=== PATIENT | male | born 1945 | race Caucasian/White ===

== ENCOUNTER 2017-01-15 22:03 | Inpatient (IN) | payer MEDICARE ==
[~2017-01-15] VITALS: Ht 170.2 cm; Wt 104.0 kg
[~2017-01-15 22:03] MED LIST: ASPIR-LOW81 MG PO; ASPIRIN 32325 MG/TAB PO; ASPIRIN 81M81 MG/TA2 PO; AVALIDE PO; CELEXA 20MG20 MG/TAB PO; CLOPIDOGREL; COREG; COREG 25MG25 MG/TAB PO; COUMADIN 1MG1 MG/TAB PO; COZAAR100 MG PO; DARVOCET-N-101 UDTAB PO; FLEXERIL 1010 MG/TAB PO; FUROSEMIDE; GLUCOPHAGE1000 MG PO; GLUCOTROL XL10 MG PO; GLUCOTROL10 M1 PO; HCTZ 25MG TAB25 MG PO; KLOR-CON 1010 MEQ PO; LANOXIN 0.120.125 MG PO; LANTUS100 U/ML SC; LASIX 20MG TABL20 MG PO; MULTIVITAMIN1 CTB PO; MVI; NITROSTAT0.4 MG/TAB SL; NORCO 325 MG-51 TAB PO; NOVOLOG 100U100 U/M1 SQ; ONGLYZA5 MG PO; PLAVIX 75MG TAB75 MG PO; PRAVACHOL 40MG40 MG PO; VICODIN 5/5001 UDTAB PO
[2017-01-15] MEDS ORDERED: ELIQUIS 5MG PO (22:24)
[2017-01-15] MEDS ORDERED: DEMADEX100 MG PO (22:25)
[2017-01-15 22:27] LABS: BASO # 0.1 (0.0-0.2); BASO % 0.4 % (0.0-2.0); EOS # 0.3 (0.0-0.7); EOS % 2.4 % (0-4.0); GRAN # 9.2 (1.4-6.5); GRAN % 74.7 % (42.2-75.2); HEMATOCRIT 43.9 % (42.0-52.0); HEMOGLOBIN 14.2 g/dl (13.5-18.0); LYMPH # 1.7 (1.2-3.4); LYMPH % 13.7 % (20.0-51.0); MEAN CELL VOLUME 91 fl (80.0-100.0); MEAN CORPUSCULAR HEMOGLOBIN 30 pg (27.0-31.0); MEAN CORPUSCULAR HGB CONC 32 g/dl (33.0-37.0); MEAN PLATELET VOLUME 10.4 fl (7.4-10.4); MONO % 8.4 % (1.7-9.3); PLATELET COUNT 230 K/mm3 (130-400); RED BLOOD COUNT 4.81 M/mm3 (4.20-5.60); REDCELL DISTRIBUTION WIDTH-CV 13.5 % (11.5-14.5); WHITE BLOOD COUNT 12.3 K/mm3 (4.8-10.8)
[2017-01-15 23:15] LABS: PROTHROMBIN TIME 11.6 SECONDS (9.7-12.8)
[2017-01-15 23:18] LABS: PARTIAL THROMBOPLASTIN TIME 33.3 SECONDS (26.0-37.0)
[2017-01-15 23:41] LABS: ADJUSTED CALCIUM 9.2 mg/dL (8.4-10.2); ALBUMIN 3.9 gm/dL (3.5-5.0); BILIRUBIN,TOTAL 0.7 mg/dL (0.0-1.0); CALCIUM 9.1 mg/dL (8.4-10.2); CREATININE, serum 0.87 mg/dL (0.66-1.25); POTASSIUM 3.8 mmol/L (3.4-5.0); TOTAL PROTEIN 6.9 gm/dL (6.4-8.2); TROPONIN-I 0.023 ng/mL (0.000-0.034)
[2017-01-16] VITALS (1109 sets, daily range): BP systolic 109–139; BP diastolic 61–92; PULSE 60–170; TEMP 97–98.7; O2SAT 83–100
[2017-01-16] MEDS ORDERED: ASPIRIN 81M81 MG/TA2 PO (01:12)
[2017-01-16] MEDS ORDERED: TRESIBA FL100 UNIT/1 SQ (01:19)
[2017-01-16 09:28] LABS: MAGNESIUM 1.9 mg/dL (1.6-2.3)
[2017-01-16 14:06] LABS: THYROID STIMULATING HORMONE 7.04 uIU/mL (0.465-4.680)
[2017-01-17] VITALS (907 sets, daily range): BP systolic 123–152; BP diastolic 59–79; PULSE 59–71; TEMP 97.3–98.7; O2SAT 80–100
[2017-01-17 06:09] LABS: BASO % 0.3 % (0.0-2.0); EOS # 0.3 (0.0-0.7); EOS % 2.9 % (0-4.0); GRAN # 8.7 (1.4-6.5); GRAN % 75.6 % (42.2-75.2); HEMATOCRIT 41.1 % (42.0-52.0); HEMOGLOBIN 13.5 g/dl (13.5-18.0); LYMPH # 1.4 (1.2-3.4); LYMPH % 11.9 % (20.0-51.0); MEAN CELL VOLUME 91 fl (80.0-100.0); MEAN CORPUSCULAR HEMOGLOBIN 30 pg (27.0-31.0); MEAN CORPUSCULAR HGB CONC 33 g/dl (33.0-37.0); MEAN PLATELET VOLUME 9.8 fl (7.4-10.4); MONO % 8.8 % (1.7-9.3); PLATELET COUNT 210 K/mm3 (130-400); RED BLOOD COUNT 4.54 M/mm3 (4.20-5.60); REDCELL DISTRIBUTION WIDTH-CV 13.6 % (11.5-14.5); WHITE BLOOD COUNT 11.5 K/mm3 (4.8-10.8)
[2017-01-17 06:37] LABS: CREATININE, serum 0.86 mg/dL (0.66-1.25); MAGNESIUM 1.7 mg/dL (1.6-2.3); POTASSIUM 3.5 mmol/L (3.4-5.0)
[2017-01-18] VITALS (815 sets, daily range): BP systolic 86–131; BP diastolic 47–81; PULSE 63–85; TEMP 97.4–98.6; O2SAT 76–99
[2017-01-18 05:43] LABS: HEMATOCRIT 43.9 % (42.0-52.0); HEMOGLOBIN 14.5 g/dl (13.5-18.0); MEAN CELL VOLUME 90 fl (80.0-100.0); MEAN CORPUSCULAR HEMOGLOBIN 30 pg (27.0-31.0); MEAN CORPUSCULAR HGB CONC 33 g/dl (33.0-37.0); PLATELET COUNT 223 K/mm3 (130-400); RED BLOOD COUNT 4.88 M/mm3 (4.20-5.60); REDCELL DISTRIBUTION WIDTH-CV 13.5 % (11.5-14.5); WHITE BLOOD COUNT 11.2 K/mm3 (4.8-10.8)
[2017-01-18 05:47] LABS: INR 1.2 (0.8-3.0); PROTHROMBIN TIME 13.2 SECONDS (9.7-12.8)
[2017-01-18 05:50] LABS: PARTIAL THROMBOPLASTIN TIME 20.9 SECONDS (26.0-37.0)
[2017-01-18 05:57] LABS: CALCIUM 9.2 mg/dL (8.4-10.2); CREATININE, serum 0.93 mg/dL (0.66-1.25); POTASSIUM 3.2 mmol/L (3.4-5.0)
[2017-01-18 14:40] LABS: MAGNESIUM 1.8 mg/dL (1.6-2.3)
[2017-01-19] VITALS (320 sets, daily range): BP systolic 95–122; BP diastolic 47–67; PULSE 64–104; TEMP 97.9–98.6; O2SAT 73–97
[2017-01-19 06:39] LABS: ADJUSTED CALCIUM 9.3 mg/dL (8.4-10.2); ALBUMIN 3.8 gm/dL (3.5-5.0); BILIRUBIN,TOTAL 0.9 mg/dL (0.0-1.0); CALCIUM 9.1 mg/dL (8.4-10.2); CREATININE, serum 1.07 mg/dL (0.66-1.25); MAGNESIUM 1.9 mg/dL (1.6-2.3); POTASSIUM 3.7 mmol/L (3.4-5.0); TOTAL PROTEIN 6.9 gm/dL (6.4-8.2)
[2017-01-20 01:14] VITALS: BP 100/52; PULSE 78; TEMP 98.1
[2017-01-20 04:10] VITALS: BP 118/54; PULSE 68; TEMP 98
[2017-01-20 04:59] VITALS: BP 118/54; PULSE 68; TEMP 98
[2017-01-20 08:54] VITALS: BP 127/61; PULSE 71; TEMP 98.5
[2017-01-20] MEDS ORDERED: COREG 25MG25 MG/TAB PO (11:26)
[2017-01-20] MEDS ORDERED: CARDIZEM CD 24240 MG PO (11:26)
[2017-01-20] MEDS ORDERED: CORDARONE200 MG/TAB PO (11:26)
[2017-01-20] MEDS ORDERED: KLOR-CON M2020 MEQ PO (11:26)
[2017-01-20] MEDS ORDERED: NITRO-DUR0.2 MG/PAT TD (11:26)
== END 2017-01-20 14:25 | disposition home or self-care (01) | DRG 281 ==
LOC: COL.ER 22:03 → ICU 23:13 → COL.ER 23:13 → IMCU 01-17 19:05 → ICU 01-17 19:05 → IMCU 01-19 10:58 → ICU 01-19 10:58 → MEDICAL 01-19 10:58
PROVIDERS: Family Medicine; Internal Medicine; Internal Medicine Cardiovascular Disease
PROC: B2111ZZ Fluoroscopy of Multiple Coronary Arteries using Low Osmolar Contrast (ICD-10-PCS; principal; 2017-01-18)
PROC: B2151ZZ Fluoroscopy of Left Heart using Low Osmolar Contrast (ICD-10-PCS; 2017-01-18)
DX: I48.2 Chronic atrial fibrillation (principal); I21.4 Non-ST elevation (NSTEMI) myocardial infarction; I50.22 Chronic systolic (congestive) heart failure; I47.2 Ventricular tachycardia; I25.5 Ischemic cardiomyopathy; I11.0 Hypertensive heart disease with heart failure; E11.65 Type 2 diabetes mellitus with hyperglycemia; I25.10 Atherosclerotic heart disease of native coronary artery without angina pectoris; Z95.810 Presence of automatic (implantable) cardiac defibrillator; Z95.5 Presence of coronary angioplasty implant and graft
CPT/HCPCS: 99223-AI; 99232-AI; 99239; C1760; J0282; J1815; J2250; J2270; J3010; J7050; J7060; Q9967

== ENCOUNTER 2017-12-03 16:53 | Inpatient (IN) | payer MEDICARE ==
[~2017-12-03] VITALS: Ht 170.2 cm; Wt 104.0 kg
[~2017-12-03 16:53] MED LIST changes: +CARDIZEM CD 24240 MG PO; +CORDARONE200 MG/TAB PO; +DEMADEX100 MG PO; +ELIQUIS 5MG PO; +KLOR-CON M2020 MEQ PO; +NITRO-DUR0.2 MG/PAT TD; +TRESIBA FL100 UNIT/1 SQ
[2017-12-03 17:15] LABS: MEAN CELL VOLUME 85 fl (80.0-100.0); MEAN CORPUSCULAR HGB CONC 29 g/dl (33.0-37.0); MEAN PLATELET VOLUME 9.3 fl (7.4-10.4); PLATELET COUNT 288 K/mm3 (130-400); RED BLOOD COUNT 2.89 M/mm3 (4.20-5.60)
[2017-12-03 17:16] LABS: HEMATOCRIT 24.5 % (42.0-52.0); HEMOGLOBIN 7.1 g/dl (13.5-18.0); MEAN CORPUSCULAR HEMOGLOBIN 25 pg (27.0-31.0)
[2017-12-03 17:26] LABS: ALANINE AMINOTRANSFERASE 140 U/L (21-72); ALBUMIN 3.8 gm/dL (3.5-5.0); ALKALINE PHOSPHATASE 71 U/L (50-136); ANION GAP 10 mmol/L (7-16); AST,SGOT 77 U/L (15-37); BILIRUBIN,TOTAL 0.4 mg/dL (0.0-1.0); BLOOD UREA NITROGEN 19 mg/dL (9-20); CALCIUM 8.9 mg/dL (8.4-10.2); CARBON DIOXIDE 29 mmol/L (22-30); CHLORIDE 99 mmol/L (98-107); CREATINE KINASE 32 U/L (55-170); CREATININE, serum 1.25 mg/dL (0.66-1.25); GLUCOSE 145 mg/dL (74-106); POTASSIUM 3.9 mmol/L (3.4-5.0); SODIUM 138 mmol/L (137-145); TOTAL PROTEIN 6.4 gm/dL (6.4-8.2)
[2017-12-03 17:31] LABS: BAND 1 % (0-10); EOSINOPHIL 1 % (0-4); LYMPHOCYTE 3 % (20.0-51.0); MICROCYTOSIS 1+; NEUTROPHILS 91 % (42.0-75.2); PLATELET ESTIMATE NORMAL (NORMAL)
[2017-12-03 17:32] LABS: ANISOCYTOSIS 2+; HYPOCHROMIA 2+
[2017-12-03 17:39] LABS: TROPONIN-I < 0.012 ng/mL (0.000-0.034)
[2017-12-03] MEDS ORDERED: TRESIBA FL100 UNIT/1 SQ (17:51)
[2017-12-03 19:42] VITALS: BP 154/61; PULSE 67; TEMP 97.2
[2017-12-03 22:00] VITALS: BP 135/59; PULSE 78; TEMP 98.3
[2017-12-03 22:15] VITALS: BP 141/54; PULSE 69; TEMP 98.4
[2017-12-03 22:30] VITALS: BP 144/55; PULSE 64; TEMP 98.7
[2017-12-03 23:00] VITALS: BP 126/47; PULSE 64; TEMP 98.7
[2017-12-04] VITALS (9 sets, daily range): BP systolic 103–154; BP diastolic 45–82; PULSE 63–80; TEMP 98.2–98.7
[2017-12-04 01:53] LABS: HEMATOCRIT 23.2 % (42.0-52.0); HEMOGLOBIN 7.2 g/dl (13.5-18.0)
[2017-12-04 06:56] LABS: BASO % 0.2 % (0.0-2.0); EOS # 0.2 (0.0-0.7); EOS % 2.1 % (0-4.0); GRAN # 6.8 (1.4-6.5); GRAN % 79.2 % (42.2-75.2); LYMPH # 0.6 (1.2-3.4); LYMPH % 7.4 % (20.0-51.0); MEAN CELL VOLUME 83 fl (80.0-100.0); MEAN CORPUSCULAR HGB CONC 31 g/dl (33.0-37.0); MEAN PLATELET VOLUME 9.5 fl (7.4-10.4); MONO # 0.9 (0.1-0.6); MONO % 10.5 % (1.7-9.3); PLATELET COUNT 244 K/mm3 (130-400); RED BLOOD COUNT 2.79 M/mm3 (4.20-5.60); REDCELL DISTRIBUTION WIDTH-CV 16.6 % (11.5-14.5)
[2017-12-04 07:06] LABS: ALBUMIN 3.2 gm/dL (3.5-5.0); BILIRUBIN,TOTAL 0.4 mg/dL (0.0-1.0); CALCIUM 8.7 mg/dL (8.4-10.2); CREATININE, serum 1.21 mg/dL (0.66-1.25); POTASSIUM 3.5 mmol/L (3.4-5.0); TOTAL PROTEIN 5.6 gm/dL (6.4-8.2)
[2017-12-04 07:09] LABS: HEMATOCRIT 23.2 % (42.0-52.0); HEMOGLOBIN 7.1 g/dl (13.5-18.0); MEAN CORPUSCULAR HEMOGLOBIN 25 pg (27.0-31.0)
[2017-12-04 09:34] LABS: HEMATOCRIT 24.8 % (42.0-52.0); HEMOGLOBIN 7.4 g/dl (13.5-18.0)
[2017-12-04 17:24] LABS: BASO % 0.2 % (0.0-2.0); EOS # 0.2 (0.0-0.7); EOS % 2.1 % (0-4.0); GRAN # 7.2 (1.4-6.5); GRAN % 79.2 % (42.2-75.2); LYMPH # 0.7 (1.2-3.4); MEAN CELL VOLUME 82 fl (80.0-100.0); MEAN CORPUSCULAR HGB CONC 30 g/dl (33.0-37.0); MEAN PLATELET VOLUME 9.8 fl (7.4-10.4); MONO # 0.9 (0.1-0.6); MONO % 10.2 % (1.7-9.3); PLATELET COUNT 250 K/mm3 (130-400); REDCELL DISTRIBUTION WIDTH-CV 16.7 % (11.5-14.5)
[2017-12-04 17:33] LABS: HEMATOCRIT 24.7 % (42.0-52.0); HEMOGLOBIN 7.5 g/dl (13.5-18.0); MEAN CORPUSCULAR HEMOGLOBIN 25 pg (27.0-31.0)
[2017-12-05 03:48] VITALS: BP 137/52; PULSE 66; TEMP 98.3
[2017-12-05 06:57] LABS: BASO % 0.4 % (0.0-2.0); EOS # 0.2 (0.0-0.7); EOS % 2.7 % (0-4.0); GRAN # 5.8 (1.4-6.5); GRAN % 73.8 % (42.2-75.2); LYMPH # 0.8 (1.2-3.4); LYMPH % 10.7 % (20.0-51.0); MEAN CELL VOLUME 84 fl (80.0-100.0); MEAN CORPUSCULAR HGB CONC 30 g/dl (33.0-37.0); MEAN PLATELET VOLUME 9.9 fl (7.4-10.4); MONO # 0.9 (0.1-0.6); PLATELET COUNT 251 K/mm3 (130-400); RED BLOOD COUNT 2.81 M/mm3 (4.20-5.60); REDCELL DISTRIBUTION WIDTH-CV 16.9 % (11.5-14.5)
[2017-12-05 07:00] LABS: CALCIUM 8.3 mg/dL (8.4-10.2); CREATININE, serum 0.98 mg/dL (0.66-1.25); POTASSIUM 3.4 mmol/L (3.4-5.0)
[2017-12-05 07:13] LABS: HEMATOCRIT 23.6 % (42.0-52.0); MEAN CORPUSCULAR HEMOGLOBIN 25 pg (27.0-31.0)
[2017-12-05 07:27] VITALS: BP 116/49; PULSE 76; TEMP 99
[2017-12-05] MEDS ORDERED: DEMADEX 20MG20 M1 PO (12:43)
[2017-12-05 13:02] VITALS: BP 106/46; PULSE 80; TEMP 98
== END 2017-12-05 16:03 | disposition home or self-care (01) | DRG 378 ==
LOC: COL.ER 16:53 → SURG 18:35 → PEDS 12-04 16:55
PROVIDERS: Emergency Medicine; Family Medicine; Internal Medicine; Internal Medicine Gastroenterology; Physician Assistant
PROC: 0W3P8ZZ Control Bleeding in Gastrointestinal Tract, Via Natural or Artificial Opening Endoscopic (ICD-10-PCS; principal; 2017-12-04 15:15)
PROC: 0DJ08ZZ Inspection of Upper Intestinal Tract, Via Natural or Artificial Opening Endoscopic (ICD-10-PCS; 2017-12-04 15:15)
DX: K31.811 Angiodysplasia of stomach and duodenum with bleeding (principal); I50.22 Chronic systolic (congestive) heart failure; I11.0 Hypertensive heart disease with heart failure; D50.0 Iron deficiency anemia secondary to blood loss (chronic); I25.10 Atherosclerotic heart disease of native coronary artery without angina pectoris; I48.0 Paroxysmal atrial fibrillation; E11.9 Type 2 diabetes mellitus without complications; Z95.5 Presence of coronary angioplasty implant and graft; Z79.4 Long term (current) use of insulin; Z79.01 Long term (current) use of anticoagulants; Z86.73 Personal history of transient ischemic attack (TIA), and cerebral infarction without residual deficits
CPT/HCPCS: 99223-AI; 99231-AI; 99239; C9113; J1815; J2704; J7040; P9016

== ENCOUNTER 2017-12-16 15:00 | Outpatient (RCR) | payer MEDICARE ==
[2017-12-12 15:24] VITALS: BP 144/64; PULSE 88; TEMP 97.8
[~2017-12-16] VITALS: Ht 170.2 cm; Wt 111.0 kg
[~2017-12-16 15:00] MED LIST changes: +DEMADEX 20MG20 M1 PO
[2017-12-16 16:27] VITALS: BP 157/93; PULSE 68; TEMP 98.4
== END 2017-12-16 17:23 | disposition home or self-care (01) ==
LOC: EUO 15:00
DX: D50.0 Iron deficiency anemia secondary to blood loss (chronic) (principal); N18.3 Chronic kidney disease, stage 3 (moderate)
CPT/HCPCS: J2916

== ENCOUNTER 2018-09-23 16:15 | Emergency (ER) | payer MEDICARE ==
[~2018-09-23] VITALS: Ht 170.2 cm; Wt 111.4 kg
[~2018-09-23 16:15] MED LIST changes: -PERCOCET 325 MG1 TA3 PO
[2018-09-23 16:18] VITALS: TEMP 97.7
[2018-09-23] MEDS ORDERED: NORCO 325 MG-51 TAB PO (17:07)
[2018-09-23 19:17] VITALS: BP 137/73; PULSE 80
== END 2018-09-23 19:19 | disposition home or self-care (01) ==
LOC: COL.ER 16:15
DX: S42.295A Other nondisplaced fracture of upper end of left humerus, initial encounter for closed fracture (principal); I11.0 Hypertensive heart disease with heart failure; I50.9 Heart failure, unspecified; I25.10 Atherosclerotic heart disease of native coronary artery without angina pectoris; E11.9 Type 2 diabetes mellitus without complications; Z79.82 Long term (current) use of aspirin; Z79.4 Long term (current) use of insulin; W01.0XXA Fall on same level from slipping, tripping and stumbling without subsequent striking against object, initial encounter
CPT/HCPCS: J2060; J3010

== ENCOUNTER → 2018-09-23 | Emergency (ER) | payer MEDICARE ==
[~2018-09-23] MED LIST changes: +PERCOCET 325 MG1 TA3 PO
== END ==
LOC: COL.ER 20:16
DX: Z72.89 Other problems related to lifestyle (principal); Z79.4 Long term (current) use of insulin; Z79.82 Long term (current) use of aspirin; Z79.899 Other long term (current) drug therapy

== ENCOUNTER 2018-09-25 08:30 | Emergency (ER) | payer MEDICARE ==
[~2018-09-25] VITALS: Ht 170.2 cm; Wt 111.4 kg
[2018-09-25 08:30] VITALS: TEMP 98
[2018-09-25] MEDS ORDERED: COREG 25MG25 MG/TAB PO (08:35)
[2018-09-25] MEDS ORDERED: PERCOCET 325 MG1 TA3 PO (11:58)
[2018-09-25 13:18] VITALS: BP 138/72; PULSE 68
== END 2018-09-25 13:23 | disposition home or self-care (01) ==
LOC: COL.ER 08:30
DX: M25.512 Pain in left shoulder (principal); Z86.73 Personal history of transient ischemic attack (TIA), and cerebral infarction without residual deficits; Z87.891 Personal history of nicotine dependence; Z98.890 Other specified postprocedural states; Z79.82 Long term (current) use of aspirin; Z79.4 Long term (current) use of insulin
CPT/HCPCS: G8978-GP; G8979-GP

== ENCOUNTER 2019-01-20 09:43 | Emergency (ER) | payer MEDICARE ==
[~2019-01-20] VITALS: Ht 170.2 cm; Wt 113.6 kg
[~2019-01-20 09:43] MED LIST changes: +PERCOCET 325 MG1 TA3 PO
[2019-01-20 09:49] VITALS: TEMP 98.1
[2019-01-20 10:27] LABS: COLLECTION METHOD CLEAN CATCH
[2019-01-20 10:30] LABS: BASO # 0.1 (0.0-0.2); BASO % 0.5 % (0.0-2.0); EOS # 0.7 (0.0-0.7); EOS % 7.2 % (0-4.0); GRAN # 6.9 (1.4-6.5); GRAN % 76.2 % (42.2-75.2); HEMATOCRIT 41.3 % (42.0-52.0); HEMOGLOBIN 12.8 g/dl (13.5-18.0); LYMPH # 0.7 (1.2-3.4); LYMPH % 7.4 % (20.0-51.0); MEAN CELL VOLUME 88 fl (80.0-100.0); MEAN CORPUSCULAR HEMOGLOBIN 27 pg (27.0-31.0); MEAN CORPUSCULAR HGB CONC 31 g/dl (33.0-37.0); MEAN PLATELET VOLUME 10.5 fl (7.4-10.4); MONO # 0.8 (0.1-0.6); MONO % 8.3 % (1.7-9.3); PLATELET COUNT 254 K/mm3 (130-400); RED BLOOD COUNT 4.68 M/mm3 (4.20-5.60); REDCELL DISTRIBUTION WIDTH-CV 16.9 % (11.5-14.5)
[2019-01-20 10:34] LABS: MUCOUS Present /lpf; PH 7 (5-8); SQUAMOUS EPITHELIAL 0-2 /hpf; URINE APPEARANCE Clear; URINE BACTERIA None Seen /hpf; URINE BILIRUBIN Negative (NEGATIVE); URINE BLOOD Negative (NEGATIVE); URINE COLOR Yellow; URINE GLUCOSE Negative (NEGATIVE); URINE KETONE Negative (NEGATIVE); URINE LEUKOCYTE ESTERASE Negative (NEGATIVE); URINE NITRATE Negative (NEGATIVE); URINE PROTEIN(semi-quant) Negative (NEGATIVE); URINE UROBILINOGEN Negative (NEGATIVE)
[2019-01-20 11:15] LABS: ALBUMIN 3.4 gm/dL (3.5-5.0); BILIRUBIN,TOTAL 0.5 mg/dL (0.0-1.0); CALCIUM 8.6 mg/dL (8.4-10.2); CREATININE, serum 0.89 mg/dL (0.66-1.25); POTASSIUM 4.2 mmol/L (3.4-5.0); TOTAL PROTEIN 6.3 gm/dL (6.4-8.2)
[2019-01-20] MEDS ORDERED: FLEXERIL 1010 MG/TAB PO (12:37)
[2019-01-20 13:06] VITALS: BP 154/94; PULSE 70
== END 2019-01-20 13:09 | disposition home or self-care (01) ==
LOC: COL.ER 09:43
PROVIDERS: Emergency Medicine
DX: M54.5 Low back pain (principal); R10.9 Unspecified abdominal pain; Z87.891 Personal history of nicotine dependence; Z95.9 Presence of cardiac and vascular implant and graft, unspecified; Z86.73 Personal history of transient ischemic attack (TIA), and cerebral infarction without residual deficits
CPT/HCPCS: J7030; Q9967

== ENCOUNTER 2019-02-07 18:13 | Emergency (ER) | payer MEDICARE ==
[~2019-02-07] VITALS: Ht 170.2 cm; Wt 113.6 kg
[2019-02-07 18:16] VITALS: TEMP 97.7
[2019-02-07 18:56] LABS: ALBUMIN 3.6 gm/dL (3.5-5.0); BILIRUBIN,TOTAL 0.3 mg/dL (0.0-1.0); C-REACTIVE PROTEIN 2.6 mg/dL (0.0-0.9); CALCIUM 9.1 mg/dL (8.4-10.2); CREATININE, serum 1.12 mg/dL (0.66-1.25); TOTAL PROTEIN 6.7 gm/dL (6.4-8.2)
[2019-02-07 19:05] LABS: TROPONIN-I 0.028 ng/mL (0.000-0.035)
[2019-02-07 19:29] LABS: BASO # 0.1 (0.0-0.2); BASO % 0.5 % (0.0-2.0); EOS # 0.6 (0.0-0.7); EOS % 5.8 % (0-4.0); GRAN # 8.3 (1.4-6.5); GRAN % 74.8 % (42.2-75.2); HEMATOCRIT 41.8 % (42.0-52.0); HEMOGLOBIN 12.8 g/dl (13.5-18.0); LYMPH # 1.1 (1.2-3.4); LYMPH % 9.8 % (20.0-51.0); MEAN CELL VOLUME 91 fl (80.0-100.0); MEAN CORPUSCULAR HEMOGLOBIN 28 pg (27.0-31.0); MEAN CORPUSCULAR HGB CONC 31 g/dl (33.0-37.0); MONO % 8.7 % (1.7-9.3); PLATELET COUNT 279 K/mm3 (130-400); RED BLOOD COUNT 4.62 M/mm3 (4.20-5.60); REDCELL DISTRIBUTION WIDTH-CV 17.3 % (11.5-14.5)
[2019-02-07 20:59] VITALS: BP 158/82; PULSE 74
== END 2019-02-07 20:45 | disposition short-term general hospital (02) ==
LOC: COL.ER 18:13
PROVIDERS: Emergency Medicine
DX: I50.1 Left ventricular failure, unspecified (principal); I10 Essential (primary) hypertension; R33.9 Retention of urine, unspecified; I25.10 Atherosclerotic heart disease of native coronary artery without angina pectoris; E11.9 Type 2 diabetes mellitus without complications; Z95.0 Presence of cardiac pacemaker; Z98.890 Other specified postprocedural states; Z79.4 Long term (current) use of insulin; Z79.82 Long term (current) use of aspirin
CPT/HCPCS: J1940

== ENCOUNTER 2019-08-06 16:30 | Emergency (ER) | payer MEDICARE ==
[~2019-08-06] VITALS: Ht 170.2 cm; Wt 113.6 kg
[2019-08-06 16:33] VITALS: PULSE 70; TEMP 97.7
[2019-08-06 17:17] VITALS: BP 129/70
== END 2019-08-06 17:29 | disposition home or self-care (01) ==
LOC: COL.ER 16:30
DX: S06.0X0A Concussion without loss of consciousness, initial encounter (principal); S00.93XA Contusion of unspecified part of head, initial encounter; I48.91 Unspecified atrial fibrillation; E11.9 Type 2 diabetes mellitus without complications; Z79.4 Long term (current) use of insulin; Z79.82 Long term (current) use of aspirin; Z95.5 Presence of coronary angioplasty implant and graft; Z86.73 Personal history of transient ischemic attack (TIA), and cerebral infarction without residual deficits; W01.198A Fall on same level from slipping, tripping and stumbling with subsequent striking against other object, initial encounter; Y92.410 Unspecified street and highway as the place of occurrence of the external cause

== ENCOUNTER 2020-01-18 22:10 | Emergency (ER) | payer MEDICARE ==
[~2020-01-18] VITALS: Ht 170.2 cm; Wt 111.4 kg
[2020-01-18 22:11] VITALS: TEMP 97.8
[2020-01-18 22:36] LABS: BASO % 0.4 % (0.0-2.0); EOS # 0.3 (0.0-0.7); EOS % 2.7 % (0-4.0); GRAN # 8.8 (1.4-6.5); GRAN % 77.4 % (42.2-75.2); HEMATOCRIT 46.4 % (42.0-52.0); HEMOGLOBIN 14.3 g/dl (13.5-18.0); LYMPH % 8.9 % (20.0-51.0); MEAN CELL VOLUME 98 fl (80.0-100.0); MEAN CORPUSCULAR HEMOGLOBIN 30 pg (27.0-31.0); MEAN CORPUSCULAR HGB CONC 31 g/dl (33.0-37.0); MEAN PLATELET VOLUME 9.9 fl (7.4-10.4); MONO # 1.2 (0.1-0.6); MONO % 10.2 % (1.7-9.3); PLATELET COUNT 192 K/mm3 (130-400); RED BLOOD COUNT 4.74 M/mm3 (4.20-5.60); REDCELL DISTRIBUTION WIDTH-CV 14.4 % (11.5-14.5)
[2020-01-18 22:38] LABS: INR 1.1 (0.8-3.0); PROTHROMBIN TIME 12.5 SECONDS (9.7-12.8)
[2020-01-18 22:41] LABS: PARTIAL THROMBOPLASTIN TIME 26.7 SECONDS (26.0-37.0)
[2020-01-18 22:45] LABS: ALBUMIN 4.1 gm/dL (3.5-5.0); BILIRUBIN,TOTAL 0.7 mg/dL (0.0-1.0); C-REACTIVE PROTEIN 1.3 mg/dL (0.0-0.9); CALCIUM 9.1 mg/dL (8.4-10.2); CREATININE, serum 1.12 (0.66-1.25); POTASSIUM 4.8 mmol/L (3.4-5.0); TOTAL PROTEIN 7.1 gm/dL (6.4-8.2)
[2020-01-18 22:56] LABS: TROPONIN-I 0.021 ng/mL (0.000-0.035)
[2020-01-19 00:14] VITALS: BP 135/98; PULSE 94
== END 2020-01-19 00:14 | disposition short-term general hospital (02) ==
LOC: COL.ER 22:10
PROVIDERS: Emergency Medicine
DX: I11.0 Hypertensive heart disease with heart failure (principal); I50.1 Left ventricular failure, unspecified; E11.9 Type 2 diabetes mellitus without complications; I48.91 Unspecified atrial fibrillation; E78.5 Hyperlipidemia, unspecified; Z95.0 Presence of cardiac pacemaker; Z79.4 Long term (current) use of insulin; Z79.82 Long term (current) use of aspirin; Z87.891 Personal history of nicotine dependence
CPT/HCPCS: J1644; J1940

== ENCOUNTER 2020-02-03 14:39 | Inpatient (IN) | payer MEDICARE ==
[~2020-02-03] VITALS: Ht 170.2 cm; Wt 110.3 kg
[2020-02-03 15:43] LABS: BASO % 0.5 % (0.0-2.0); EOS # 0.2 (0.0-0.7); EOS % 2.6 % (0-4.0); GRAN # 6.5 (1.4-6.5); GRAN % 80.7 % (42.2-75.2); HEMATOCRIT 37.9 % (42.0-52.0); HEMOGLOBIN 11.5 g/dl (13.5-18.0); LYMPH # 0.5 (1.2-3.4); LYMPH % 6.5 % (20.0-51.0); MEAN CELL VOLUME 100 fl (80.0-100.0); MEAN CORPUSCULAR HEMOGLOBIN 30 pg (27.0-31.0); MEAN CORPUSCULAR HGB CONC 30 g/dl (33.0-37.0); MEAN PLATELET VOLUME 9.2 fl (7.4-10.4); MONO # 0.7 (0.1-0.6); MONO % 9.2 % (1.7-9.3); PLATELET COUNT 255 K/mm3 (130-400); REDCELL DISTRIBUTION WIDTH-CV 15.3 % (11.5-14.5)
[2020-02-03 15:51] LABS: INR 1.2 (0.8-3.0); PROTHROMBIN TIME 13.9 SECONDS (9.7-12.8)
[2020-02-03 16:01] LABS: ALBUMIN 3.3 gm/dL (3.5-5.0); BILIRUBIN,TOTAL 0.5 mg/dL (0.0-1.0); C-REACTIVE PROTEIN 1.4 mg/dL (0.0-0.9); CALCIUM 8.3 mg/dL (8.4-10.2); CREATININE, serum 0.92 (0.66-1.25); POTASSIUM 4.8 mmol/L (3.4-5.0); TOTAL PROTEIN 5.9 gm/dL (6.4-8.2)
[2020-02-03 16:10] LABS: TROPONIN-I 0.016 ng/mL (0.000-0.035)
[2020-02-03 18:04] LABS: COLLECTION METHOD CLEAN CATCH
[2020-02-03 18:13] LABS: MUCOUS Present /lpf; PH 6 (5-8); SQUAMOUS EPITHELIAL None Seen /hpf; URINE APPEARANCE Clear; URINE BACTERIA None Seen /hpf; URINE BILIRUBIN Negative (NEGATIVE); URINE BLOOD 1+ (NEGATIVE); URINE COLOR Yellow; URINE GLUCOSE Negative (NEGATIVE); URINE KETONE Negative (NEGATIVE); URINE LEUKOCYTE ESTERASE Negative (NEGATIVE); URINE NITRATE Negative (NEGATIVE); URINE PROTEIN(semi-quant) Negative (NEGATIVE); URINE UROBILINOGEN Negative (NEGATIVE)
[2020-02-03 21:09] VITALS: BP 139/61; PULSE 65; TEMP 98.6
[2020-02-04] VITALS (7 sets, daily range): BP systolic 89–133; BP diastolic 47–70; PULSE 65–94; TEMP 98.3–98.9
--- NOTE | 2020-02-04 02:42 | NUR ---
At this time, patient pushes call light complaining of being diaphoretic and requesting a blood sugar check. This RN checks his BG and it is 54. Aguada juice, beth crackers and peanutbutter provided. Will recheck BG in 15 minutes. Patient is still coherent and alert/oriented and able to tolerate PO intake as normal.
--- NOTE | 2020-02-04 02:57 | NUR ---
At this time, patient's BG reassessed and it is back up to 80. Patient states he is feeling better and isn't sweaty anymore. Will continue to monitor.
--- NOTE | 2020-02-04 05:33 | NUR ---
Patient has slept throughout most of the night. He had complaints of SOA this evening, was satting fine but we put him on 1L O2 for comfort. He also had an episode of low blood sugar which he was able to detect when he became diaphoretic. This was corrected with orange juice and beth crackers with peanutbutter. He has not complained of pain.
[2020-02-04 06:24] LABS: BASO % 0.5 % (0.0-2.0); EOS # 0.2 (0.0-0.7); EOS % 2.8 % (0-4.0); GRAN # 6.9 (1.4-6.5); GRAN % 81.3 % (42.2-75.2); HEMATOCRIT 37.2 % (42.0-52.0); HEMOGLOBIN 11.5 g/dl (13.5-18.0); LYMPH # 0.5 (1.2-3.4); MEAN CELL VOLUME 99 fl (80.0-100.0); MEAN CORPUSCULAR HEMOGLOBIN 31 pg (27.0-31.0); MEAN CORPUSCULAR HGB CONC 31 g/dl (33.0-37.0); MEAN PLATELET VOLUME 9.4 fl (7.4-10.4); MONO # 0.8 (0.1-0.6); PLATELET COUNT 243 K/mm3 (130-400); RED BLOOD COUNT 3.76 M/mm3 (4.20-5.60); REDCELL DISTRIBUTION WIDTH-CV 15.3 % (11.5-14.5)
[2020-02-04 06:43] LABS: ALBUMIN 3.3 gm/dL (3.5-5.0); BILIRUBIN,TOTAL 0.4 mg/dL (0.0-1.0); CALCIUM 8.3 mg/dL (8.4-10.2); CREATININE, serum 0.94 (0.66-1.25); MAGNESIUM 2.2 mg/dL (1.6-2.3); POTASSIUM 4.3 mmol/L (3.4-5.0); TOTAL PROTEIN 5.8 gm/dL (6.4-8.2)
--- NOTE | 2020-02-04 08:38 | NUR ---
Pt awake and alert upon entry, no C/O pain at this time, talkative, shift assessments complete, left Pt call light in reach, bed in lowest position.
--- NOTE | 2020-02-04 14:36 | NUR ---
RNAGEL met with the patient to discuss discharge plan. The patient lives alone in [place]. He states that his support in town is his friend and an old colleague, Garth Quintana (ph#[phone]). He reports independence with ADLs and has a walking stick, cane, walker and still drives. The patient's PCP is Dr. Patti Fishman and he receives his medications at [facility]. He reports no difficulties obtaining his meds. The patient does not have advanced directives completed, but he was interested in obtaining a form for DPOA-HC. RANGEL provided. The patient states that his next of kin is his niece, Roxi Lim (ph#[phone]). Roxi lives in [place], [place]. The patient plans to return home upon discharge. RANGEL discussed OT's recommendaton of post-acute rehab vs home health. The patient reports that he had a bad experience with home health in the past and would not want to get home health again. He states that he is not interested in any IPR or SNF upon discharge. He does state that he thought he was suppose to be getting set up with cardiac rehab soon through Dr. Burnette. RANGEL contacted Dr. Burnette's office. The RN reports that he has not been seen in the clinic since August and was unsure about the cardiac rehab. RANGEL updated the patient of this. He confirmed that the last time he saw Dr. Burnette was in August and he was told he would have a follow up in six months. RANGEL updated the patient's PA-C of the above information. SW to continue to follow.
--- NOTE | 2020-02-04 20:15 | NUR ---
At time of assessment, patient is resting in bed but is easily woken up. He is A&O and doesn't report any pain. He is not on any oxygen at this time and states he is breathing much better today. His lungs are clear/diminished with very faint crackles. He has bilat lower extremity edema with pitting that resolves rapidly. R a/c IV flushes well. Blood sugar was 115 and patient did not want to take his scheduled Levemir because of recent episodes of hypoglycemia during this hospital stay. No further concerns are voiced at this time. Will continue to monitor.
[2020-02-05 00:05] VITALS: BP 92/57; PULSE 95; TEMP 98
[2020-02-05 04:00] VITALS: BP 92/56; PULSE 94; TEMP 98
[2020-02-05 06:31] LABS: BASO % 0.4 % (0.0-2.0); EOS # 0.3 (0.0-0.7); EOS % 3.7 % (0-4.0); GRAN # 6.7 (1.4-6.5); GRAN % 75.3 % (42.2-75.2); HEMATOCRIT 37.5 % (42.0-52.0); HEMOGLOBIN 11.4 g/dl (13.5-18.0); LYMPH # 0.8 (1.2-3.4); LYMPH % 8.4 % (20.0-51.0); MEAN CELL VOLUME 99 fl (80.0-100.0); MEAN CORPUSCULAR HEMOGLOBIN 30 pg (27.0-31.0); MEAN CORPUSCULAR HGB CONC 30 g/dl (33.0-37.0); MEAN PLATELET VOLUME 9.6 fl (7.4-10.4); MONO # 1.1 (0.1-0.6); MONO % 11.9 % (1.7-9.3); PLATELET COUNT 260 K/mm3 (130-400); REDCELL DISTRIBUTION WIDTH-CV 15.3 % (11.5-14.5)
[2020-02-05 06:51] LABS: CALCIUM 8.3 mg/dL (8.4-10.2); CREATININE, serum 1.08 (0.66-1.25)
[2020-02-05 07:37] VITALS: BP 93/57; PULSE 95; TEMP 98.1
[2020-02-05] MEDS ORDERED: PRINIVIL10 MG PO (09:25)
[2020-02-05] MEDS ORDERED: PLAVIX 75MG TAB75 MG PO (09:26)
[2020-02-05] MEDS ORDERED: LIPITOR 40MG TA40 MG PO (09:27)
--- NOTE | 2020-02-05 09:49 | NUR ---
RANGEL attended clinical rounds. The hospitalist discussed cardiac rehab. The patient reports that he would be agreeable to cardiac rehab. RANGEL contacted Jamie with Cardiac Rehab. Jamie reports that she would just need an order from the hospitalist for Cardiac Rehab and then she would contact the patient to set up an appointment. RANGEL informed the hospitalist and faxed the order for Cardiac Rehab to Jamie. RANGEL updated the patient. The patient verbalized understanding and was in agreeance to the plan. He had no other questions or concerns for RANGEL. The patient is to discharge back home today, 02/04. No additional needs at this time.
--- NOTE | 2020-02-05 10:07 | NUR ---
Pt assessment completed and charted. Medications administered per JAN. Pt has RAC INT IV that flushes w/o complications. Pt on room air, denies any SOB, breathing is even and unlabored. Pt on tele, independent in room, using urinal at bedside. Pt denies any other pain, N/V/D. No further concerns expressed at this time.
[2020-02-05] MEDS ORDERED: CORDARONE200 MG/TAB PO ×2 (11:08→11:10)
[2020-02-05] MEDS ORDERED: DEMADEX 20MG20 M1 PO (11:11)
--- NOTE | 2020-02-05 13:19 | NUR ---
Pt discharge instructions discussed and reviewed w/ pt who verbalized understanding, all questions answered. RAC INT IV dc'd w/o complications. pt escorted out via WC by CATALINO Keebde w/ friend driving pt home. No further needs.
--- NOTE | 2020-02-05 14:46 | NUR ---
Discussed cardiac rehab with Mr. Pulido, stated that he was interested, but with no supplemental insurance he felt that he could not participate at this time. He was interested in the Phase III program. He was given written instructions on how to start a home exercise program. He was given the cardiac rehab phone to call if he had questions. Voiced understanding.
== END 2020-02-05 13:22 | disposition home or self-care (01) | DRG 292 ==
LOC: COL.ER 14:39 → MEDICAL 16:17
PROVIDERS: Emergency Medicine; Physician Assistant; ADMIT Internal Medicine
DX: I11.0 Hypertensive heart disease with heart failure (principal); E87.3 Alkalosis; I50.23 Acute on chronic systolic (congestive) heart failure; Z95.810 Presence of automatic (implantable) cardiac defibrillator; I25.10 Atherosclerotic heart disease of native coronary artery without angina pectoris; Z95.5 Presence of coronary angioplasty implant and graft; E11.9 Type 2 diabetes mellitus without complications; Z79.4 Long term (current) use of insulin; I48.0 Paroxysmal atrial fibrillation; Z79.01 Long term (current) use of anticoagulants; E78.5 Hyperlipidemia, unspecified; Z86.73 Personal history of transient ischemic attack (TIA), and cerebral infarction without residual deficits; F32.9 Major depressive disorder, single episode, unspecified; Z87.891 Personal history of nicotine dependence; R31.0 Gross hematuria; D64.9 Anemia, unspecified; R53.81 Other malaise
CPT/HCPCS: 99231-AI; 99239; J1815; J1940